=== PATIENT | female | born 1985 | race African-American/Black ===

== ENCOUNTER 2023-08-05 15:45 | Emergency (ER) | payer BC, SELFPAY ==
[2023-08-05 15:50] VITALS: BP 158/108; PULSE 94; TEMP 36.8; O2SAT 98; BMI 39.9
--- NOTE | 2023-08-05 16:01 | ED.DENTAL1 ---
HPI - Dental/Oral General Chief complaint: Dental/Oral Stated complaint: poss tooth infection, vision disturbance Time Seen by Provider: 08/05/23 15:46 Source: patient Mode of arrival: walk-in Limitations: no limitations History of Present Illness HPI Narrative: A tooth broke two days ago and that tooth began hurting this morning. Localized to the right upper rear molars. She now has swelling of the right cheek. No relief with OTC meds. She apparently saw a dentist 2-3 months ago for the same tooth but did not tolerate the procedure to apply a filling. She has not been back to that dentist. Related Data Home Medications ?Medication ?Instructions ?Recorded ?Confirmed atogepant 60 mg tablet (Qulipta) 60 mg PO DAILY 08/05/23 08/05/23 atogepant 60 mg tablet (Qulipta) 60 mg PO QDAY 08/05/23 08/05/23 Previous Rx's ?Medication ?Instructions ?Recorded clindamycin HCl 150 mg capsule 450 mg (3 x 150 mg) PO QID 7 days 08/05/23 #84 caps nabumetone 750 mg tablet 750 mg PO BID PRN pain #14 tabs 08/05/23 Allergies Allergy/AdvReac Type Severity Reaction Status Date / Time No Known Drug Allergies Allergy Verified 08/05/23 15:50 Exam Narrative Exam Narrative: afebrile General: The patient is comfortable, alert and oriented x3, well appearing, non toxic in no apparent distress. Head: Atraumatic and normocephalic. Eyes: Normal conjunctiva ENT: The oropharynx is normal. No pharyngeal erythema, uvular edema, tonsillar exudates, asymmetry or trismus. Uvula is midline. Mouth is normal to inspection with the exception of a pain on percussion of the tooth #3 & 2, which are both carious and partially fractured. There is evidence of dental caries. There is right cheek swelling. Floor of the mouth is soft. No tenderness in the submental or submandibular space. No tongue elevation or deviation. The patient has no evidence of periapical abscess or gingivitis but has widespread periodontal disease and poor dentition. Airway is patent. Neck: The neck demonstrates normal range of motion. No meningeals signs are present. No stridor. No masses or lymphadenopathy noted. Respiratory: No acute distress, lungs are clear to auscultation, no wheezing, rhonchi, or rales noted. No stridor or retractions are noted. Cardiovascular: Regular rate and rhythm Skin: The skin exam shows no evidence of rashes Neuro: Alert and oriented x4, normal speech Lymphatic: No cervical lymphadenopathy Constitutional Vital Signs, click to edit/add: Last Vital Signs Temp 98.2 F 08/05/23 15:50 Pulse 94 H 08/05/23 15:50 Resp 18 08/05/23 15:50 BP 158/108 H 08/05/23 15:50 Pulse Ox 98 08/05/23 15:50 O2 Del Method Room Air 08/05/23 15:50 Course Vital Signs Vital signs: Vital Signs Temperature 98.2 F 08/05/23 15:50 Pulse Rate 94 H 08/05/23 15:50 Respiratory Rate 18 08/05/23 15:50 Blood Pressure 158/108 H 08/05/23 15:50 Pulse Oximetry 98 08/05/23 15:50 Oxygen Delivery Method Room Air 08/05/23 15:50 Temperature 98.2 F 08/05/23 15:50 Pulse Rate 94 H 08/05/23 15:50 Respiratory Rate 18 08/05/23 15:50 Blood Pressure 158/108 H 08/05/23 15:50 Pulse Oximetry 98 08/05/23 15:50 Oxygen Delivery Method Room Air 08/05/23 15:50 MDM - Dental/Oral MDM Narrative Medical decision making narrative: Topical dental paste prepared by the ED nurse and given to the patient. She also received oral toradol for pain. She was discharged home with prescriptions for clindamycin and relafen. She was given a list of dentists in the area taking new patients. Discharge Plan Discharge Stand Alone Forms: Portal Instructions Chief Complaint: Dental/Oral Clinical Impression: Dental caries, Toothache, Fracture of tooth Patient Disposition: Home, Self-Care Time of Disposition Decision: 16:10 Prescriptions / Home Meds: New clindamycin HCl 150 mg capsule 450 mg PO QID 7 Days Qty: 84 0RF nabumetone 750 mg tablet 750 mg PO BID PRN (Reason: pain) Qty: 14 0RF No Action Qulipta 60 mg tablet 60 mg PO QDAY Qulipta 60 mg tablet 60 mg PO DAILY Print Language: Setswana Instructions: Toothache (ED), Periodontal Disease (DC) Referrals: Physician,Non-Staff, MD [Primary Care Provider] - 1 week
[2023-08-05] MEDS: KETOROLAC TROMETHAMINE 10 MG TABLET PO (16:16)
[2023-08-05] MEDS: BENZOCAINE 30 ML, lidocaine HCL 15 ML MM (16:17)
[2023-08-05 16:27] VITALS: BP 155/90
== END 2023-08-05 16:29 | disposition home or self-care (01) ==
PROVIDERS: Emergency Provider Emergency Medicine; PCP Family Medicine
DX: K02.9 Dental caries, unspecified (principal); K08.89 Other specified disorders of teeth and supporting structures; S02.5XXA Fracture of tooth (traumatic), initial encounter for closed fracture
CPT/HCPCS: 99283